=== PATIENT | female | born 1975 | race Caucasian/White ===

== ENCOUNTER → 2024-02-18 09:07 | Outpatient (REF) | payer BC, OTHER, SELFPAY | LOC: ANHLAB 09:07 | PROVIDERS: Visit Provider Plastic Surgery | DX: C43.9 Malignant melanoma of skin, unspecified (principal) | CPT/HCPCS: 88305 ==

== ENCOUNTER → 2025-06-02 11:22 | Outpatient (REF) | payer BC, SELFPAY ==
--- NOTE | 2025-06-02 11:22 | S_PTH ---
PATIENT: Miranda Stroud LOC: [facility] U#:[id number] AGE/SX: 50/F ROOM: RE06/02/[address]: Sarika Roque MD : 1975 BED: DIS: SPEC #: [id number] RECD: 06/02/25 13:44 STATUS: IRENA REEugenia #: [id number] KHADIJAH: 06/02/25 11:[address]: Sarika Roque DEPT: [facility] Surgical RECD BY: Lynn David ENTERED: 06/02/25 13:44 SP TYPE: Surgical OTHR DR: UNKNOWN,DOCTOR Tissues: A - Nevus Procedures: Hematoxylin and Eosin Stain [place]/Miri A Gross and Microscopic Level 4 SOX 10
--- OUTSIDE RECORDS SUMMARY | 2025-06-02 14:16 | XMS_ITS | Clinical Summary ---
Author Organization [facility] [employer] Address [address] [place] [address] Care Team Providers Care Retail Route Supervisor Name Role Phone Nidhi Dietrich APRN-MANAGER DRUG Primary Care Provide r Source Comments [facility] [employer],non-owned Affiliates and Associated Physician Practices is amultiple site organization consisting of ambulatory clinics and hospital sitesin [place], [place], [place] and [place]. This disclosure is being madepursuant to the Care Everywhere program and may not contain all information available regarding this patient. Last updated 18.[facility] [employer] Allergies Active Allergy Reactions Criticality Noted Date Comments Amoxicillin-Pot Clavulanate Itching,Rash Medium 2002 Augmentin Rash Medium 04/21/2020 Medications * Be aware that medications may not be up to date on this document. Alwaysverify current medications with the patient. pseudoephedrine (WAL-PHED) 30 MG tablet Take 30 mg by mouth every 4 hours as needed for Nasal Congestion Active chlorpheniramine (CHLOR-TRIMETON) 4 MG tablet Take 4 mg by mouth once daily Active Acetaminophen-As pirin Buffered 250-250 MG Take 250 mg by mouth once daily Active topiramate (TOPAMAX) 25 MG tabletIndication s:Migraine Take 1 tablet by mouth 2 times daily Reasons: Migraine Headache 180 tablet 4 0 Active frovatriptan (FROVA) 2.5 MG tabletIndication s:Intractable migraine without aura and without status migrainosus Take 1 tablet by mouth daily as needed - may repeat one time No more than three should be taken in 24 hours. 9 tablet 11 0 Active Active Problems No known active problems Social History Tobacco Use Types Packs/Day Years Used Date Smoking Tobacco: Never Smokeless Tobacco: Never Alcohol Use Standard Drinks/Week Comments Yes 0 (1 standard drink = 0.6 oz pur e alcohol) Once in a while AUDIT-C Answer Date Recorded Q1: How often do you have a drink containing alc ohol? Never 04/21/2020 Average Number of Drinks Not on file 020 Frequency of Binge Drinking Not on file 04/2020 Comments Unknown Sex and Gender Information Value Date Recorded Sex Assigned at Not on file Legal Sex Female 10:24 AM CDT Gender Identity Not on file Sexual Orientation Not on file Last Filed Vital Signs Vital Sign Reading Time Taken Comments Blood Pressure 135/86 04/21/2020 9:45 AM CDT Pulse 91 04/21/2020 9:45 AM CDT Temperature 36.1 C (97 F) 04/21/2020 9:45 AM CDT Respiratory Rate - - Oxygen Saturation 92% 04/21/2020 9:45 AM CDT Inhaled Oxygen Concentration - - Weight 60.4 kg (133 lb 3.2 oz) 04/21/2020 9:45 A M CDT Height 170.2 cm (5' 7) 04/21/2020 9:45 AM CDT Body Mass Index 20.86 04/21/2020 9:45 AM CDT Plan of Treatment Health Maintenance Due Date Last Done Comments COLOGUARD (AGES 45-75) - COL ON CA SCREENING 1975 COLON MONITORING 1974 COLONOSCOPY - COLON CA SCREENING 1974 CT COLONOGRAPHY - COLON CA SCREENING 1974 Colorectal Cancer Screening 1974 FIT - COLON CA SCREENING 1974 FLEX SIG - COLON CA SCREENING 1974 LIPID TESTING 1974 MAMMOGRAM 1974 HIV SCREENING 1989 HEPATITIS C SCREENING 01/28/1992 DTAP/TDAP/TD VACCINES (1 - Tdap) 1993 HEPATITIS B VACCINE (1 of 3 - 19+ 3-dose series) 1993 PAP SMEAR 1995 PNEUMOCOCCAL VACCINE 50+ (1 of 1 - PCV) 02/02/2024 ZOSTER VACCINE (1 of 2) 02/02/2024 DEPRESSION SCREENING 08/13/2024 COVID-19 VACCINE (1 - 2023-2 5 season) 2025 INFLUENZA VACCINE (#1) 2025 HIB VACCINE Aged Out No longer eligi ble based on patient's age to complete this topic HPV VACCINE Aged Out No longer eligi ble based on patient's age to complete this topic MENINGOCOCCAL (Group B) VACC INE SHARED DECISION-MAKING Aged Out No longer eligibl e based on patient's age to complete this topic MENINGOCOCCAL GROUPS A/C/Y/W VACCINE Aged Out No longer eligible b ased on patient's age to complete this topic Insurance * Guarantor: MIRANDA STROUD Type Relation to Patient Date of Phone Billing Address Personal/Family [address] [place] [address] [facility] [employer] * Guarantor: MIRANDA STROUD Type Relation to Patient Date of Phone Billing Address Personal/Family [address] [place] [address] [facility] [facility] * Guarantor: MIRANDA STROUD Type Relation to Patient Date of Phone Billing Address Personal/Family [address] [place] [address] [facility] Care Teams Retail Route Supervisor Relationship Specialty Start Date End Date Nidhi Dietrich, PHONOGRAPH NEEDLE TIP MAKER-MANAGER DRUG [address] [place] [address] [facility] - General 05/12/22
== END ==
LOC: ANHLAB 11:22
PROVIDERS: Visit Provider Plastic Surgery
DX: C43.71 Malignant melanoma of right lower limb, including hip (principal); D22.62 Melanocytic nevi of left upper limb, including shoulder
CPT/HCPCS: 88305; 88342